=== PATIENT | female | born 2005 | race Two or more races ===

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

== ENCOUNTER → 2024-09-25 | Emergency (ER) | payer MEDICAID ==
[~2024-09-25] VITALS: Ht 167.6 cm; Wt 69.4 kg
[~2024-09-25] MED LIST changes: +CYCL-839 PO; +IBU600T PO; -SODIUM CHLORIDE 0.9% 1,000 ML IV ONE
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
[2024-09-25 18:32] VITALS: BP 147/87; PULSE 98; RESP 18; TEMP 98; O2SAT 97
== END | disposition home or self-care (01) ==
LOC: ER 16:56
DX: S40.012A Contusion of left shoulder, initial encounter (principal); S40.011A Contusion of right shoulder, initial encounter; S70.01XA Contusion of right hip, initial encounter; T14.8XXA Other injury of unspecified body region, initial encounter; Y04.2XXA Assault by strike against or bumped into by another person, initial encounter; Y93.89 Activity, other specified; Y92.89 Other specified places as the place of occurrence of the external cause; Y99.8 Other external cause status